=== PATIENT | female | born 1995 | race Caucasian/White ===

== ENCOUNTER 2017-12-11 21:37 | Emergency (ER) | payer BC ==
[2017-12-11 21:45] VITALS: BP 130/96
--- NOTE | 2017-12-11 21:54 | EDPHY ---
H & P Time Seen by Provider: 12/11/17 21:58 HPI/ROS: HPI: This is a 22-year-old female who presents with Chief Complaint: Lump on neck Location: Neck Quality: Lump Duration: 48 hr Signs and Symptoms: no fever, no nausea, no vomiting, no diarrhea, no urinary symptoms, no chest pain, no shortness of breath, no wheezing, no cough, no sore throat, no neck stiffness, no joint pain, no swollen glands, no ear pain, no rash Timing: Acute Severity: [id number] Context: Patient reports that she felt in her posterior neck near her left ear 2-3 enlarged lumps that are tender with palpation. She reports that they occurred approximately 48 hr prior to arrival. She had a diagnosis of infectious mononucleosis 6 months ago that has resulted in chronic tonsillitis and has that time select being adenoidectomy scheduled her ENT on January 03. She reports that she travel to [place] approximately 1 month ago and obtained upper respiratory infection. She followed with a primary care provider and had a negative strep test at that time and was diagnosed with viral syndrome. She denies any exposure to cats and does not own one. Patient denies any neck stiffness, headache, vision changes, fever, chills. She has tried nothing for the symptoms. Modifying Factors: None Comment: ROS: see HPI Constitutional: no fever, no chills, no weight loss Eyes: No blurred vision Respiratory: No shortness of breath, no cough Cardiovascular: No chest pain, no palpitations Gastrointestinal: No nausea, no vomiting, no diarrhea, no hematemesis, no blood in stool Genitourinary: No dysuria, no blood in urine Extremities: No myalgias, no edema Neurologic: No weakness, no numbness Skin: No rashes, no petechiae Hematologic: No bruising, no bleeding MEDICAL/SURGICAL/SOCIAL HISTORY: Medical history: Infectious mononucleosis, chronic tonsillitis. LMP 1-7 days ago. Surgical history: Denies Social history: Student. Family history noncontributory. CONSTITUTIONAL: awake and alert, no obvious distress HEENT: Atraumatic and normocephalic, PERRL, EOMI. Nares patent; no rhinorrhea; no nasal mucosal edema. Tympanic membranes clear. Oropharynx clear, no exudate and moist pink mucosa. Airway patent. Posterior cervical chain shows 1 mm 2-3 mobile enlarged lymph nodes with no surrounding erythema, no streaking , no fluctuance. No meningismus. Cardiovascular: Normal S1/S2, regular rate, regular rhythm, without murmur rub or gallop. PULMONARY/CHEST: Symmetrical and nontender. Clear to auscultation bilaterally. Good air movement. No accessory muscle usage. ABDOMEN: Soft, nondistended, nontender, no rebound, no guarding, no peritoneal signs, no masses or organomegaly. No CVAT. EXTREMITIES: 2/2 pulses, strength 5/5, no deformities, no clubbing, no cyanosis or edema. NEUROLOGICAL: no focal neuro deficits. GCS 15. SKIN: Warm and dry, no erythema. no rash. Good capillary refill. Source: Patient Exam Limitations: No limitations - Personal History LMP (Females 10-55): 1-7 Days Ago Current Tetanus/Diphtheria Vaccine: Yes Current Tetanus Diphtheria and Acellular Pertussis (TDAP): Yes - Medical/Surgical History Hx Asthma: No Hx Chronic Respiratory Disease: No Hx Diabetes: No Hx Cardiac Disease: No Hx Renal Disease: No Hx Cirrhosis: No Hx Alcoholism: No Hx HIV/AIDS: No Hx Splenectomy or Spleen Trauma: No Other PMH: Denies - Social History Smoking Status: Never smoked Constitutional: Initial Vital Signs Temperature (C) 36.6 C 12/11/17 21:42 Heart Rate 70 12/11/17 21:42 Respiratory Rate 16 12/11/17 21:42 Blood Pressure 130/96 H 12/11/17 21:42 O2 Sat (%) 100 12/11/17 21:42 O2 Delivery Mode Room Air Allergies/Adverse Reactions: No Known Allergies Allergy (Unverified 12/11/17 21:45) Home Medications: Medication Instructions Recorded Adderall 10 mg Tablet 12/11/17 Amoxicillin/Clavulanate Pot 875 mg PO BID #19 tab 12/11/17 [Augmentin 875 MG TAB (*)] Lo Loestrin Fe 1-10 Tablet 12/11/17 Medical Decision Making ED Course/Re-evaluation: Vital signs reviewed and stable upon arrival. No systemic signs. Patient has no signs dental abscess, otitis, mononucleosis, toxoplasmosis, meningitis, abscess, facial cellulitis. She has a history of mononucleosis 6 months ago with recent viral infection approximately 3 weeks ago and chronic tonsillitis scheduled January 03 to have a T&A performed by her ENT. It is my suspicion that this lymphadenopathy is reactive in nature. I do not feel that a CT of the soft tissue of the neck would be beneficial at this time. After long discussion with the patient was decided to start on prophylactic antibiotics with ENT follow-up. Prescription for Augmentin given along with 1st dose in the ER and prepack of Percocet to go home. This patient was seen under the supervision of my secondary supervising physician. I evaluated care for this patient independently. Discussed this patient with Dr. Rose. Differential Diagnosis: Differential diagnosis includes but is not limited to lymphoma, mononucleosis, toxoplasmosis, brachial cleft lesions, cat scratch disease, mycobacterial adenitis. Departure - Departure Disposition: Home, Routine, Self-Care Clinical Impression: Lymphadenopathy of head and neck region Condition: Good Instructions: Lymphadenopathy (ED), Adenitis (ED) Additional Instructions: Take Augmentin as directed until complete. Do not skip a dose. Take Tylenol 650 mg every 4 hours and/or Ibuprofen 600 mg every 8 hours with food as needed for pain. Use Percocet every 6 hours as needed for severe/break through pain. Do not use Tylenol and Percocet concomitantly. Apply warm compresses for 30 minutes at a time; 2-3 times per day for the next 1 -2 days. Follow up with ENT in 10-14 days if symptoms persist at which time they will evaluate and recommend with you if conservative management versus further adjuvant therapy is indicated. Referrals: [facility] [place] [[facility]] - As per Instructions Prescriptions: Amoxicillin/Clavulanate Pot [Augmentin 875 MG TAB (*)] 875 mg PO BID #19 tab
[2017-12-11] MEDS ORDERED: OXYCODONE/APAP 5/325MG PREPACK#4 BTL TAKEHOME ONE (21:55)
[2017-12-11] MEDS ORDERED: AMOXICILLIN/CLAVULANATE POT 875/125 MG TAB PO ONE (21:55)
== END 2017-12-11 22:13 | disposition home or self-care (01) ==
DX: R59.0 Localized enlarged lymph nodes (principal)